=== PATIENT | male | born 1935 | race Caucasian/White ===

== ENCOUNTER → 2020-09-05 14:21 | Outpatient (BNVA) | payer MEDICARE, SELFPAY | PROVIDERS: PCP Internal Medicine; Visit Provider Urology | DX: N40.1 Benign prostatic hyperplasia with lower urinary tract symptoms (principal); N13.8 Other obstructive and reflux uropathy; N39.0 Urinary tract infection, site not specified; R35.1 Nocturia | CPT/HCPCS: 81002; 99202 ==

== ENCOUNTER 2024-09-24 13:05 | Outpatient (REF) | payer MEDICARE, SELFPAY ==
--- NOTE | ~2024-09-24 | XR_ITS ---
EXAMINATION: XR CHEST 2 VIEWS HISTORY: respiratory infection COMPARISON: There are no prior studies for comparison. FINDINGS: PA and lateral views of the chest are submitted. The lungs are expanded and clear. There is no pleural effusion, pneumothorax, or pulmonary vascular congestion. The heart is normal in size. There is degenerative disc disease of the spine. XR/XR chest 2V IMPRESSION: Clear lungs. Electronically signed by: Abhi Azul MD 09/24/2024 03:59 PM OFELIA
== END 2024-09-24 13:06 | disposition home or self-care (01) ==
LOC: HO.XRAY 13:05
PROVIDERS: PCP Internal Medicine; Visit Provider Internal Medicine
DX: J98.8 Other specified respiratory disorders (principal)
CPT/HCPCS: 71046

== ENCOUNTER → 2024-09-24 13:15 | Outpatient (BNV) | payer MEDICARE, SELFPAY | PROVIDERS: PCP Internal Medicine; Visit Provider Radiology Diagnostic Radiology | DX: J98.8 Other specified respiratory disorders (principal) | CPT/HCPCS: 71046 ==

== ENCOUNTER 2025-05-02 15:46 | Emergency (ER) | payer MEDICARE, SELFPAY ==
--- NOTE | ~2025-05-02 | US_ITS ---
CLINICAL HISTORY: pain, swelling VENOUS DUPLEX ULTRASOUND RIGHT LOWER EXTREMITY Comparison: None provided Findings: The visualized deep veins are fully compressible with normal Doppler color flow and spectral tracings. No popliteal cyst. IMPRESSION: 1. Negative for right lower extremity deep vein thrombosis. This document has been electronically signed by: Kimmy Gray DO on 05/02/2025 18:28:16
[2025-05-02 16:28] VITALS: BP 147/67; PULSE 70; RESP 16; TEMP 36.6; O2SAT 95
--- NOTE | 2025-05-02 16:28 | ED.GENADULT ---
HPI - General Adult General Chief complaint: Extremity Problem Stated complaint: swollen right leg Time Seen by Provider: 05/02/25 22:02 Source: patient Mode of arrival: ambulatory Limitations: no limitations History of Present Illness ED Provider: Leo MARIE HPI narrative: The patient is an 89-year-old markedly healthy male presenting to the ED for evaluation of approximately 1 week of right lower leg swelling. Patient reports he was stung by a bee and noted the development of swelling in the right calf, ankle, and foot. The patient reports pain subsided but swelling has persisted. The patient denies associated erythema, warmth, paresthesias, pain, tenderness, chest pain, shortness of breath, pleurisy, recent travel, or other recent injury. The patient denies any complaints, including any swelling proximal to the distal knee. The patient denies any left lower extremity complaints. The patient reports he has been icing the area which has improved swelling and tightness, but admits he has not been actively elevating the leg. In the ED patient denies any other acute somatic complaint, reports he feels otherwise at baseline. Related Data Previous Rx's ?Medication ?Instructions ?Recorded finasteride 5 mg tablet 5 mg PO DAILY 90 days #90 tabs 09/05/20 tamsulosin 0.4 mg capsule 0.4 mg PO BEDTIME #90 caps 09/05/20 sulfamethoxazole 800 1 tab PO BID 7 days #14 tabs 09/30/20 mg-trimethoprim 160 mg tablet (Bactrim DS) Allergies Allergy/AdvReac Type Severity Reaction Status Date / Time No Known Allergies Allergy Verified 05/02/25 16:32 Review of Systems Review of Systems: Yes all other systems are reviewed and are negative PMFSH Social History Social History Advance Directives: No Advance Directives Information Provided: Yes Do you have a plan to hurt others: No Plan Physical Exam ED Vital Signs: Vital Signs - 24 hr 05/02/25 16:28 Temperature 97.8 F Pulse Rate 70 Respiratory Rate 16 Blood Pressure 147/67 H Pulse Oximetry 95 Oxygen Delivery Method Room Air BMI result Body Mass Index 30.0 CONSTITUTIONAL: The patient appears non-toxic, well nourished and in no acute distress. Vital signs as documented. HEAD: Atraumatic, normocephalic. EYES: EOMs grossly intact, pupils equal, conjunctiva clear, no exudate. ENT: Nares patent, no discharge. Airway patent, no audible stridor, visible mucosa is pink and moist without noted lesions. NECK: Trachea is midline, no obvious masses or gross abnormalities. CHEST: Symmetric movement, normal appearance. LUNGS: LS present and CTAB, no w/r/r. Non-labored work of breathing. CARDIAC: Regular Rhythm, S1/S2 appreciated, no murmurs, rubs or gallops. ABDOMEN: Abdomen soft and non-tender x4 quadrants, no palpable masses or organomegaly. : Deferred. EXTREMITIES: The right lower leg demonstrates mild swelling without calf tenderness, there is more significant, 1+ pitting edema noted to the right ankle and foot, distal CSM is intact, 2+ DP/PT pulses, there is no overlying erythema, tenderness, contusion, open wound, impaired range of motion, or other acute finding. Skin between the toes is intact. The patient's proximal right lower extremity is unremarkable, no popliteal fossa tenderness, no swelling or tenderness. Normal tone, moves all extremities spontaneously without reported pain. No obvious acute injury or deformity noted. NEURO: Alert and oriented x3, CN II-XII appear grossly intact. Cerebellar Functioning grossly intact. No obvious sensory or motor deficits. Speech clear and appropriate. PSYCH: normal affect, appropriate eye contact, fluid speech, with appropriate response to questioning. No reported suicidality or homicidality. SKIN: Warm, dry, color appropriate, normal turgor. No rashes noted. Course Course Course Narrative: This is an RME: Additional HPI, ROS, PE not included below will be deferred to primary provider. RME assessment and note performed by: Shira Rahman PA-C This is a [id number]-male, with a hx of BPH, who presents to the ER with a complaint of right lower leg swelling x 1.5 weeks. No hx of blood clots. No recent travel, surgeries or hospitalizations. R leg well perfused, +calf tenderness. Plan: Labs, US, further ER eval needed Medical Decision Making Medical Decision Making MDM Narrative: 10:19 PM 05/02/2025 (Taty MARIE): The patient is an otherwise markedly healthy 89-year-old male presenting to the ED for evaluation of atraumatic right lower leg swelling which began after a bee sting 1 week ago. The patient reports intermittent associated tensing of the right calf, however this improved with icing, no tensing in the ED. Exam reveals no evidence of cellulitis, deformity, open injury/wound, or other acute finding. There is no calf tenderness, distal paresthesias, or impaired perfusion. The patient's laboratory evaluation is markedly reassuring, no leukocytosis, significant anemia, electrolyte abnormality, or MARIVEL. Patient's lower extremity DVT study shows no evidence of DVT. At this time patient's presentation appears consistent with dependent edema secondary to bee sting with delayed resolution. No indication for admission or observation. The patient will be discharged with instructions to actively elevate his leg as much as possible to facilitate more rapid resolution of symptoms. Patient has also been advised to follow up with his PCP. Admission/Observation Consideration of admission/observation: Escalation of care including admission/observation considered Lab Data MDM Lab Attestation statement: I reviewed the patient's lab results. 05/02/25 16:43 05/02/25 16:43 Labs: Lab Results 05/02/25 Range/Units 16:43 WBC 6.2 (4.8-10.8) X10*3/uL RBC 4.49 L (4.60-5.80) X10*6/uL Hgb 14.2 (14.0-18.0) g/dl Hct 41.7 L (42.0-52.0) % MCV 92.9 (80.0-98.0) fL MCH 31.6 (27.0-33.0) pg MCHC 34.1 (31.0-36.0) g/dl RDW 13.2 (11.0-16.0) % Plt Count 176 (160-400) X10*3/uL MPV 9.4 (9.4-12.4) fL Immature Gran % (Auto) 0.5 H (0.0-0.4) % Neut % (Auto) 56.2 (45-73) % Lymph % (Auto) 26.4 (20-40) % [place] % (Auto) 12.5 H (2-11) % Eos % (Auto) 4.1 H (0-4) % Baso % (Auto) 0.3 (0-2) % Lymph # (Auto) 1.6 (1.2-4.9) X10*3/uL [place] # (Auto) 0.8 (0.1-1.2) X10*3/uL Eos # (Auto) 0.3 (0.0-0.4) X10*3/uL Baso # (Auto) 0.0 (0.0-0.2) X10*3/uL Abs Immat Gran (auto) 0.03 (0.00-0.03) X10*3/uL Absolute Neuts (auto) 3.5 (2.0-8.3) x10*3/uL Absolute Nucleated RBC 0.000 (0.0-0.012) X10*3/uL Nucleated RBC % (auto) 0.0 (0.0-0.2) /100WBC PT 11.3 (10.9-12.4) SEC INR 1.0 (0.9-1.1) APTT 30.5 (26.7-34.1) SEC Sodium 140 (135-145) mmol/L Potassium 4.4 (3.3-5.1) mmol/L Chloride 107 (96-108) mmol/L Carbon Dioxide 23 (22-29) mmol/L Anion Gap 14 (12-20) BUN 27 H (9-16) mg/dL Creatinine 0.83 (0.5-1.4) mg/dL Estim Creat Clear Calc 76.9 Estimated GFR > 60 Random Glucose 94 (60-115) mg/dL Calcium 9.3 (8.4-10.2) mg/dL Total Bilirubin 0.6 (0.0-1.0) mg/dL AST 31 (5-37) U/L ALT 28 (0-40) U/L Alkaline Phosphatase 55 (39-117) U/L Total Protein 6.7 (6.5-8.0) g/dL Albumin 4.3 (3.5-5.0) g/dL Radiology Impression Discussion of test interpretation with radiology: I have reviewed the radiologist's reading. Radiologist Impression: CLINICAL HISTORY: pain, swelling VENOUS DUPLEX ULTRASOUND RIGHT LOWER EXTREMITY Comparison: None provided Findings: The visualized deep veins are fully compressible with normal Doppler color flow and spectral tracings. No popliteal cyst. IMPRESSION: 1. Negative for right lower extremity deep vein thrombosis. This document has been electronically signed by: Kimmy Gray DO on 05/02/2025 18:28:16 Discharge Plan Discharge Clinical Impression: Swelling of right lower extremity Patient Disposition: Home, Self-Care Instructions: Edema (ED) Additional Instructions: Thank you for choosing [facility]'s Emergency Department for your care today. Thankfully your laboratory evaluation, ultrasound, and exam today are all reassuring. At this time there is no indication for admission to the hospital or continued ED observation, and it is safe to discharge you home. Your ultrasound shows no evidence of a DVT, and your laboratory workup and exam showed no evidence of cellulitis or other acute infectious process. Your kidney function is normal, and there was no evidence of diffuse fluid retention. Your localized swelling of the right lower leg is likely secondary to your recent bee sting. You may continue applying ice as needed, however it is extremely important that you actively elevate your leg above the level of your heart whenever possible to facilitate a more rapid resolution of the symptoms. Additionally, it is very important that you follow up with your primary care physician to confirm resolution of your symptoms, to investigate any persistent symptoms, and for additional management of your symptoms and continued preventative care. If you do not have a primary care physician, please call the [facility] at [phone] to establish a new primary care physician. While waiting to establish your new primary care physician, you can call our [facility] at [phone] for non-emergency needs. Please return to the emergency department if you develop a severe or sudden change in your symptoms, a fever over 100.4 that does not improve with Tylenol or Ibuprofen, recurrent vomiting, or any other new or worsening symptoms or concerns. Prescriptions: No Action sulfamethoxazole-trimethoprim [Bactrim DS] 800-160 mg tablet 1 tab PO BID 7 Days Qty: 14 0RF tamsulosin 0.4 mg capsule 0.4 mg PO BEDTIME Qty: 90 0RF finasteride 5 mg tablet 5 mg PO DAILY 90 Days Qty: 90 1RF Referrals: Physician,Unknown J [Physician, Medical] Clinical Impression: Swelling of right lower extremity Print Language: Icelandic
[2025-05-02 16:46] LABS: MANUAL DIFF FLAG NO
[2025-05-02 16:48] LABS: Hematocrit 41.7 % (42.0-52.0); Hemoglobin 14.2 g/dl (14.0-18.0); Imm Gran Abs Auto 0.03 X10*3/uL (0.00-0.03); Imm Gran Pct Auto 0.5 % (0.0-0.4); Lymphocytes Absolute Auto 1.6 X10*3/uL (1.2-4.9); Mean Corpuscular HGB Conc 34.1 g/dl (31.0-36.0); Mean Corpuscular Hemoglobin 31.6 pg (27.0-33.0); Mean Corpuscular Volume 92.9 fL (80.0-98.0); NRBC Abs Auto 0.000 X10*3/uL (0.0-0.012); NRBC Pct Auto 0.0 /100WBC (0.0-0.2); Platelet Count 176 X10*3/uL (160-400); Red Blood Count 4.49 X10*6/uL (4.60-5.80); White Blood Count 6.2 X10*3/uL (4.8-10.8)
[2025-05-02 16:53] LABS: INTERNATIONAL NORM RATIO 1.0 (0.9-1.1); Prothrombin Time 11.3 SEC (10.9-12.4)
[2025-05-02 16:55] LABS: Partial Thromboplastin Time 30.5 SEC (26.7-34.1)
[2025-05-02 17:01] LABS: Alanine Aminotransferase 28 U/L (0-40); Albumin Level 4.3 g/dL (3.5-5.0); Alkaline Phosphatase 55 U/L (39-117); Anion Gap 14 (12-20); Aspartate Amino Transferase 31 U/L (5-37); Blood Urea Nitrogen 27 mg/dL (9-16); Calcium 9.3 mg/dL (8.4-10.2); Carbon Dioxide 23 mmol/L (22-29); Chloride 107 mmol/L (96-108); Creatinine Clr Calc Pharmacy 76.9; Estimated Glomerular Filt Rate > 60; Potassium 4.4 mmol/L (3.3-5.1); Sodium 140 mmol/L (135-145); Total Protein 6.7 g/dL (6.5-8.0)
--- NOTE | 2025-05-02 22:23 | MHC.EDTECH ---
pt refused vitals.
[2025-05-02 22:46] VITALS: BP 147/67; PULSE 70; RESP 16; TEMP 36.6; O2SAT 95
== END 2025-05-02 22:46 | disposition home or self-care (01) ==
PROVIDERS: Physician Assistant Medical; Emergency Provider Emergency Medicine; PCP Internal Medicine
DX: M79.89 Other specified soft tissue disorders (principal); M79.604 Pain in right leg
CPT/HCPCS: 36415; 80053; 85025; 85610; 85730; 93971; 99283; 99284

== ENCOUNTER → 2025-05-02 16:35 | Outpatient (BNV) | payer MEDICARE, SELFPAY | PROVIDERS: Visit Provider Radiology Diagnostic Radiology | DX: R22.41 Localized swelling, mass and lump, right lower limb (principal) | CPT/HCPCS: 93971 ==